=== PATIENT | female | born 1960 | race Caucasian/White ===

== ENCOUNTER → 2016-10-08 | Outpatient (CLI) | payer BC | END | disposition home or self-care (01) | LOC: RAD.S 12:45 | DX: C07 Malignant neoplasm of parotid gland (principal); C79.51 Secondary malignant neoplasm of bone; R91.8 Other nonspecific abnormal finding of lung field; Z98.890 Other specified postprocedural states ==

== ENCOUNTER → 2016-12-17 | Outpatient (CLI) | payer BC | END | disposition home or self-care (01) | LOC: PTH.S 07:34 | DX: C07 Malignant neoplasm of parotid gland (principal); C79.51 Secondary malignant neoplasm of bone; I10 Essential (primary) hypertension; R91.8 Other nonspecific abnormal finding of lung field; R59.0 Localized enlarged lymph nodes; Z98.890 Other specified postprocedural states ==